=== PATIENT | male | born 1945 | race Caucasian/White ===

== ENCOUNTER → 2020-08-21 | Outpatient (CLI) | payer OTHER ==
[2020-08-21 15:31] LABS: BASO % 0.7 % (0.0-1.0); EOS # 1.2 10^3/uL (0.0-0.5); HEMATOCRIT 49.1 % (42.0-52.0); HEMOGLOBIN 15.5 g/dl (13.5-17.5); LYMPH % 17.7 % (24.0-44.0); MEAN CORPUSCULAR HEMOGLOBIN 29.1 pg (27.0-33.0); MEAN CORPUSCULAR HGB CONC 31.6 g/dl (32.0-36.5); MEAN CORPUSCULAR VOLUME 92.1 fl (80.0-96.0); MONO # 0.3 10^3/uL (0.0-0.8); MONO % 5.4 % (2.0-8.0); NEUTROPHILS # 3.1 10^3/uL (1.5-8.5); NEUTROPHILS % 54.3 % (36.0-66.0); PLATELET COUNT, AUTOMATED 228 10^3/uL (150-450); RED BLOOD COUNT 5.33 10^6/uL (4.30-6.10); WHITE BLOOD COUNT 5.7 10^3/uL (4.0-10.0)
[2020-08-21 15:41] LABS: INR 0.98; PROTHROMBIN TIME 13.2 SECONDS (12.5-14.3)
[2020-08-21 15:42] LABS: PARTIAL THROMBOPLASTIN TIME 31.5 SECONDS (24.2-38.5)
[2020-08-21 15:49] LABS: EOS % 21.5 % (0.0-3.0)
[2020-08-21 15:55] LABS: ALBUMIN 3.7 GM/DL (3.2-5.2); ALT/SGPT 22 U/L (12-78); BILIRUBIN,DIRECT 0.4 MG/DL (0.0-0.2); BILIRUBIN,TOTAL 2.1 MG/DL (0.2-1.0); CALCIUM LEVEL 9.6 MG/DL (8.8-10.2); CREATININE FOR GFR 0.93 MG/DL (0.70-1.30); GLOMERULAR FILTRATION RATE > 60.0 (>42); TOTAL PROTEIN 7.7 GM/DL (6.4-8.2)
[2020-08-21 15:59] LABS: ERYTHROCYTE SEDIMENTATION RATE 6 mm/hr (0-20)
[2020-08-27 18:07] LABS: ANCA-ATYPICAL <1:20 titer (Neg:<1:20); ANGIOTENSIN 1 CONVERTING ENZYM 43 U/L (14-82); ANTI DS-DNA AB Positive (Negative); ANTINUCLEAR ANTIBODIES DIRECT Negative (Negative); ASPERGILLUS FLAVUS ABY Negative (Neg:<1:1); ASPERGILLUS FUMIGATUS ABY Negative (Neg:<1:1); ASPERGILLUS NIGER ABY Negative (Neg:<1:1); BLASTOMYCES ANTIBODY LEVEL Negative (Neg:<1:1); CRYPTOCOCCUS ANTIGEN SER Negative (Negative); CYTOPLASMIC NEUTROP AB ANCA-C <1:20 titer (Neg:<1:20); PERINUCLEAR AB ANCA-P <1:20 titer (Neg:<1:20); RNP ANTIBODIES <0.2 AI (0.0-0.9); SJOGREN'S ANTI SS-A <0.2 AI (0.0-0.9); SJOGREN'S ANTI SS-B <0.2 AI (0.0-0.9); SMITH ANTIBODIES <0.2 AI (0.0-0.9)
== END ==
LOC: M PLALAB 13:54
PROVIDERS: ATTEND Internal Medicine Pulmonary Disease
DX: R91.8 Other nonspecific abnormal finding of lung field (principal)

== ENCOUNTER → 2020-10-04 | Outpatient (CLI) | payer MEDICARE, MEDICAID ==
[~2020-10-04] MED LIST: ATOR1TAB21 PO; BEVE1AER INH; LIDOCAINE 1% MDV 20ML VIAL As Ordered ONE; PREG50CA2 PO
--- NOTE | 2020-10-04 10:27 | REP ---
INDICATION: POST RIGHT LUNG BIOPSY, 1 VIEW, PA INSPIRATION. COMPARISON: None. TECHNIQUE: PA inspire a abimael chest x-ray. Post biopsy exam. FINDINGS: There is no evidence of pneumothorax. Patient is status post right lung biopsy. No hydrothorax is seen. Interstitial markings are increased. Heart is not enlarged. The aorta is tortuous. IMPRESSION: No complication seen. <Electronically signed by Steve Bauer > 10/04/20 1025
[2020-10-04 12:04] VITALS: BP 126/82
--- NOTE | 2020-10-04 14:58 | REP ---
INDICATION: RT LOWER LOBE LUNG NODULE. COMPARISON: None. TECHNIQUE: Procedure was performed under the direct supervision of Dr. Bauer. The patient has a history of a right lower lobe lung lesion seen on a previous CT scan dated 08/02/2020 from [facility]. The risks and benefits of the procedure were explained to the patient and informed consent was obtained. The right lower lobe lung lesion was localized using CT guidance. The skin was prepped and draped in a sterile fashion. 1% lidocaine was used as a local anesthetic. Using CT guidance a 19/20 gauge coaxial needle biopsy system was inserted and advanced into the lesion. Five core biopsy samples were obtained and sent to the lab for analysis. The patient tolerated the procedure well and there were no immediate complications. After the appropriate amount to monitor convalescence the patient was discharged from the department. FINDINGS: None IMPRESSION: CT-guided right lower lobe lung biopsy. <Electronically signed by Damion Ruffin > 10/04/20 [id number] <Electronically signed by Steve Bauer > 10/04/20 0410
== END ==
LOC: M IRPRO 07:57
PROVIDERS: ATTEND Internal Medicine Pulmonary Disease
DX: R91.8 Other nonspecific abnormal finding of lung field (principal)